=== PATIENT | female | born 1975 | race American Indian/Alaskan Native ===

== ENCOUNTER 2017-08-19 08:09 | Inpatient (IN) | payer MEDICAID, OTHER ==
[~2017-08-19 08:09] MED LIST: ADRENALIN ONE; ATROPINE 0.1% (CARDIAC) ONE; CALCIUM CHLORIDE IV ONE; CORDARONE IV ONE; SODIUM BICARBONATE IV ONE
[2017-08-19] MEDS ORDERED: NACL 0.9% 1000 ML 1,000 ML IV ONE (08:20)
[2017-08-19] MEDS ORDERED: AMINOPHYLLINE IV ONE (08:25)
[2017-08-19] MEDS ORDERED: D5W IV ONE (08:25)
[2017-08-19] MEDS ORDERED: LEVOPHED DRIP 4 MG/NS 250 ML 4 MG/250 ML BAG IV ONE (08:30)
[2017-08-19] MEDS: LEVOPHED DRIP 4 MG/NS 250 ML 4 MG/250 ML BAG IV SCH ×5 (08:35→18:09)
[2017-08-19] MEDS ORDERED: ASPIRIN PO ONE (08:50)
[2017-08-19] MEDS ORDERED: NACL 0.9% 1000 ML 1,000 ML ONE (08:53)
[2017-08-19] MEDS: ADRENALIN 16 MG in NACL 0.9% 250ML 234 ML IV SCH (09:03)
[2017-08-19 09:08] LABS: Basophils # (Auto) 0.1 K/mm3 (0.0-0.1); Basophils % (Auto) 0.8 % (0.0-1.8); Eosinophils % (Auto) 0.4 % (0.0-4.3); Hematocrit 20.7 % (30.3-42.9); Lymphocytes # (Auto) 3.1 K/mm3 (1.2-5.4); Lymphocytes % (Auto) 43.3 % (13.4-35.0); Mean Corpuscular HGB Conc 29 % (30-34); Mean Corpuscular Volume 90 fl (79-97); Monocytes # (Auto) 0.4 K/mm3 (0.0-0.8); Platelet Count 154 K/mm3 (140-440); Red Cell Distribution Width 17.1 % (13.2-15.2)
[2017-08-19 09:12] LABS: Mean Corpuscular Hemoglobin 26 pg (28-32)
[2017-08-19] MEDS ORDERED: NACL 0.9% 500 ML 500 ML IV ONE (09:14)
[2017-08-19 09:18] LABS: Calcium 6.6 mg/dL (8.4-10.2); Hemolysis Index 20
[2017-08-19] MEDS: CORDARONE 900 MG in D5W 482 ML IV SCH (09:18)
[2017-08-19 09:32] LABS: BUN/Creatinine Ratio 7; Blood Urea Nitrogen 125 mg/dL (7-17)
--- NOTE | 2017-08-19 09:34 | Emergency Department Report ---
HPI - General Chief Complaint: Cardiac Arrest/CPR Time Seen by Provider: 08/19/17 08:49 - HPI HPI: This is a 42 year-old female presents to the emergency department by EMS from home in cardiac arrest. The patient supposedly was heard falling in the bathroom by his unknown how long she was down in there, unresponsive. EMS was called at 7:30 AM and was thereby 7:40 AM. They found her with agonal breathing. They attempted to intubate the patient but ended up putting it in her esophagus. She was found to be in V. fib and was defibrillated and went into PEA and asystole. She received a total of 3 rounds of epinephrine, along with chest compressions, and was brought to [facility] ER. She arrived was still pulseless, unresponsive and in asystole. We took out the esophageal intubation and intubated her endotracheally and continued with ACLS protocol. The patient has a history of CHF and end-stage renal disease. Allegedly she just got a new dialysis fistula about 2 weeks ago. I later spoke to her who says that she does not have a esl instructor and he is unsure who her heel cover splitter is as they just moved to this area. ED Past Medical Hx - Past Medical History Previous Medical History?: Yes Hx Hypertension: No Hx Congestive Heart Failure: Yes Hx Diabetes: No Hx Deep Vein Thrombosis: No Hx Renal Disease: Yes (ESRD) Hx Sickle Cell Disease: No Hx Seizures: No Hx Asthma: No Hx HIV: No - Social History Smoking Status: Unknown if ever smoked - Medications Home Medications: Home Medications Medication Instructions Recorded Confirmed Last Taken Type Calcium Acetate [Phoslo] 3 tab PO QDAY 08/19/17 08/19/17 Unknown History Carvedilol [Coreg] 12.5 mg PO BID 08/19/17 08/19/17 Unknown History Furosemide [Lasix TAB] 40 mg PO QDAY 08/19/17 08/19/17 Unknown History Losartan [Cozaar] 50 mg PO QDAY 08/19/17 08/19/17 Unknown History ED Review of Systems ROS: Stated complaint: CARDIAC ARREST Other details as noted in HPI Comment: Unobtainable due to pts medical conditions Physical Exam - Physical Exam Vital Signs: Vital Signs 08/19/17 08:27 Pulse Rate 46 L Respiratory 16 Rate Blood Pressure 83/35 Physical Exam: GENERAL: Patient is ill-appearing and unresponsive. HENT: Normocephalic. Atraumatic. Patient has moist mucous membranes. There is some blood seen in the oropharynx when intubating. EYES: Pupils are fixed and dilated. NECK: Supple. Trachea appears midline. CHEST/LUNGS: There are no spontaneous respirations. HEART/CARDIOVASCULAR: There are no spontaneous heart sounds. ABDOMEN: Abdomen is soft. Morbidly obese habitus. SKIN: Skin is cool but dry. NEURO: Unresponsive. Does not withdraw to painful stimuli. Does not follow any commands. MUSCULOSKELETAL: There is no obvious deformity. There is no evidence of acute injury. No palpable femoral or radial pulses. ED Course Vital Signs 08/19/17 08:27 Pulse Rate 46 L Respiratory 16 Rate Blood Pressure 83/35 - ABG Interpretation Ph: 6.945 PCO2: 37 PO2: 241 Bicarbonate: 8.0 Interpretation: metabolic acidosis - Central Line Placement Right Femoral Consent Obtained: emergent situation Time Out Performed: Yes Patient Placed on Monitor/Pulse Ox: Yes MD Prep: mask, gown, gloves Central Line Prep: Chlorhexidine scrub Ultrasound Used for Placement: Yes Central Line Lumen Inserted: triple Bloods Obtained for Lab: Yes Central Line Position: good blood return, all ports aspirated, flus, sutured in place with nyl Dressing Applied: Tegaderm, sterile gauze/tape Patient Tolerated Procedure: well Complications: none - Intubation Time Out Performed: No Laryngoscope: other (Glydescope) Size: 4 ET Tube Size: 7.5 Tube Secured Depth (cm): 23 Tube Secured Location: lips Tube Placement Confirmation: visualized tube passing t, equal breath sounds bilat, confirmation by capnometr Patient Tolerated Procedure: well Intubation Complications: none ED Medical Decision Making - Lab Data Result diagrams: 08/19/17 08:40 08/19/17 08:40 - EKG Data -: EKG Interpreted by Me - EKG Data When compared to previous EKG there are: previous EKG unavailable Interpretation: other (junctional rhythm, rate of 31, left axis deviation, LVH, nonspecific ST-T waves, prolonged QT) - Radiology Data Radiology results: image reviewed interpreted by me: Chest x-ray shows ET tube in appropriate position. No pneumothorax. No obvious pneumonia or pleural effusions. - Medical Decision Making Patient presented to the emergency department in cardiac arrest. EMS had attempted to intubate the patient but it appeared to be in her esophagus. I pulled this out and intubated the patient using the glydescope. The patient had a few rounds of asystole and/or PEA but then had 1 round of V. fib where she received a defibrillation. Shortly after this the patient had return of spontaneous circulation. She started becoming bradycardic and hypotensive so pressors were started and I placed a right femoral central line. The patient did eventually lose her pulse again and ACLS was restarted but we're able to get return of spontaneous circulation a second time. Patient's labs came back showing hemoglobin of 6. There was some blood seen in the oropharynx but otherwise no obvious bleeding source was seen but could just be worsening of her anemia of chronic kidney disease. She was on a norepinephrine drip, epinephrine drip and received 2 units of packed red blood cells. EKG showed a junctional rhythm most likely consistent with hyperkalemia. She was given some calcium to protect the myocardium and was given the hyperkalemia cocktail. Labs showed a CO2 of 7, elevated BNP and troponin levels. Cardiology was counseled that secondary to her abnormal EKG and cardiac arrest with return of spontaneous circulation. Nephrology was consulted regarding her end-stage renal disease with hyperkalemia. Patient was admitted to the hospitalist service. It appears that the patient will get a Vas-Cath placed and will get dialysis. All the patient's functional status has not yet been determined or improved, the vitals appear to be improving slightly at this time and we have started to turn down some of the pressors. Patient will be admitted to the ICU. Family has been updated along the way. - Differential Diagnosis dysrhythmia, CHF, CO Critical Care Time: Yes Critical care time in (mins) excluding proc time.: 45 Critical care attestation.: If time is entered above; I have spent that time in minutes in the direct care of this critically ill patient, excluding procedure time. Critical care time is been spent on this patient and initial evaluation, multiple re-evaluations, ordering and interpretation of labs and imaging, titration of pressors, discussion with the hospitalist/cardiology/nephrology services, discussion with the family. This does not include time spent doing the intubation or central line procedures. Critical Care Time: 45 minutes ED Disposition Clinical Impression: Cardiac arrest, ESRD needing dialysis, Hyperkalemia, Lactic acidosis Respiratory failure Qualifiers: Chronicity: acute Respiratory failure complication: unspecified whether with hypoxia or hypercapnia Qualified Code(s): J96.00 - Acute respiratory failure, unspecified whether with hypoxia or hypercapnia Hypotension Qualifiers: Hypotension type: unspecified hypotension type Qualified Code(s): I95.9 - Hypotension, unspecified Disposition: -09 OP ADMIT IP TO THIS HOSP Is pt being admited?: Yes Condition: Critical Time of Disposition: 11:58
[2017-08-19] MEDS ORDERED: PROVENTIL IH ONE (09:39)
--- NOTE | 2017-08-19 10:10 | XRay Report ---
AP CHEST: HISTORY: Shortness of breath, endotracheal tube placement No comparison. The endotracheal tube terminates 1 cm superior to the graham. A nasogastric tube is followed to the fundus of the stomach. There is mild rotation to the left. Moderate cardiomegaly and bilateral pulmonary edema are identified. No large pleural effusion or pneumothorax. IMPRESSION: Lines and tubes as described. Cardiomegaly and bilateral pulmonary edema.
[2017-08-19] MEDS ORDERED: KIONEX PO ONE (10:46)
[2017-08-19 10:49] LABS: HDL Cholesterol 18 mg/dL (40-59); LDL Cholesterol,Direct 18 mg/dL (50-130)
[2017-08-19] MEDS ORDERED: ARTIFICIAL TEARS OPHTH OINT OU PRN (10:59)
[2017-08-19] MEDS ORDERED: VASELINE LIP THERAPY TP PRN (10:59)
[2017-08-19] MEDS ORDERED: D50W (25GM) Syringe IV ONE (11:14)
[2017-08-19] MEDS ORDERED: CALCIUM GLUCONATE 1,000 MG in NACL 0.9% 100 ML IV ONE (12:13)
[2017-08-19] MEDS ORDERED: SODIUM BICARBONATE 150 MEQ in D5W 1,000 ML IV ONE (12:29)
--- NOTE | 2017-08-19 14:41 | Consultation ---
History of Present Illness - Reason for Consult Consult date: 08/19/17 end stage renal disease, hyperkalemia, metabolic acidosis Requesting physician: BUZZ ROBIN - History of Present Illness This is a 42 year-old female presents to the emergency department by EMS from home in cardiac arrest. The patient supposedly was heard falling in the bathroom by his unknown how long she was down in there, unresponsive. EMS was called at 7:30 AM and was thereby 7:40 AM. They found her with agonal breathing. They attempted to intubate the patient but ended up putting it in her esophagus. She was found to be in V. fib and was defibrillated and went into PEA and asystole. She received a total of 3 rounds of epinephrine, along with chest compressions, and was brought [facility]. She arrived was still pulseless, unresponsive and in asystole. We took out the esophageal intubation and intubated her endotracheally and continued with ACLS protocol. The patient has a history of CHF and end-stage renal disease. Allegedly she just got a new dialysis fistula about 2 weeks ago. I later spoke to her who says that she does not have a fur ironer and he is unsure who her field service technician poultry is as they just moved to this area. - Past Medical History Previous Medical History?: Yes Hx Hypertension: No Hx Congestive Heart Failure: Yes Hx Diabetes: No Hx Deep Vein Thrombosis: No Hx Renal Disease: Yes (ESRD) Hx Sickle Cell Disease: No Hx Seizures: No Hx Asthma: No Hx HIV: No - Social History Smoking Status: Unknown if ever smoked ROS: Stated complaint: CARDIAC ARREST Other details as noted in HPI Comment: Unobtainable due to pts medical conditions Medications and Allergies Allergies Allergy/AdvReac Type Severity Reaction Status Date / Time No Known Allergies Allergy Unverified 03/29/13 23:26 Active Meds: Active Medications Hydrophilic Ointment (Vaseline Lip Therapy) 1 applic TP Q2HR PRN PRN Reason: Dry Lips Amiodarone HCl 900 mg/ (Dextrose) 500 mls @ 0 mls/hr IV DIRECT OZIEL Last Admin: 08/19/17 09:18 Dose: 33.33 mls/hr Epinephrine 16 mg/ Sodium (Chloride) 250 mls @ 1.87 mls/hr IV TITR OZIEL; 2 MCG/ MIN PRN Reason: Protocol Last Admin: 08/19/17 09:03 Dose: 10 mcg/min, 9.37 mls/hr Norepinephrine (Levophed Drip 4 Mg/Ns 250 Ml) 4 mg in 250 mls @ 7.5 mls/hr IV TITR OZIEL; 2 MCG/MIN PRN Reason: Protocol Last Titration: 08/19/17 14:24 Dose: 24 mcg/min, 90 mls/hr Sodium Bicarbonate 150 meq/ (Dextrose) 1,150 mls @ 75 mls/hr IV ONCE.ED ONE Stop: 08/20/17 03:48 Multi-Ingred Cream/Lotion/Oil/Oint (Artificial Tears Ophth Oint) 1 applic OU Q4HR PRN PRN Reason: Dry Eye(s) Exam - Vital Signs Vital signs: Vital Signs Resp 98 H 08/19/17 08:10 - General Appearance General appearance: chronically ill, sedated on ventilator, intubated EENT: PERRL, exudate Respiratory: Rales, Ronchi, Decreased Breath Sounds Heart: bradycardia, S1S2, faint heart tones Gastrointestinal: Present: normal, hypoactive bowel sounds Integumentary: cool/clammy, chronic venous stasis Neurologic: no focal deficit Musculoskeletal: Present: cyanosis, decreased ROM Psychiatric: other (sedate on the vent) Results - Lab Results 08/19/17 08:40 08/19/17 08:40 Most recent lab results Calcium 6.6 mg/dL (8.4-10.2) L 08/19/17 08:40 Assessment and Plan Impression: * ESRD * S/P cardiac arrest * Uremia * Hyperkalemia * Acute Resp Failure * Metabolic Acidosis * anemia in chronic disease Plan: * Vasopressors to keep MAP >65 * strict i/os * Sodium bicarbonate gtt * treat k medically * give 2 units prbcs today * epogen with HD * vasc cath placement--D/W vascular * initiate hemodialysis as hemodynamics allow * likely will need daily HD for solute and volume control * daily lytes * plan on NO UF intially with hd to keep hemodynamics stable * D/W family at bedside--questions answered, willing to proceed as planned
[2017-08-19] MEDS ORDERED: ALBURX 25% (ALBUMIN) IV PRN (14:42)
[2017-08-19] MEDS ORDERED: PROCRIT IV PRN (14:42)
[2017-08-19] MEDS ORDERED: NACL 0.9% 100 ML IV PRN (14:42)
[2017-08-19] MEDS ORDERED: NACL 0.9% 500 ML 500 ML IV SCH (14:45)
--- NOTE | 2017-08-19 14:50 | Consultation ---
History of Present Illness Consult date: 08/19/17 Consult reason: cardiac arrest History of present illness: The patient is a 42-year-old woman who suffered a cardiopulmonary arrest at home. When the brand ambassador promotional model got there, they reported ventricular fibrillation arrest, and began ACLS protocol. On arrival to the emergency room, there was recurrent ventricular fibrillation, followed by pulseless electrical activity, followed by eventual blood pressure on high doses of pressor agents. EKG post resuscitation showed a junctional or idioventricular rhythm with no P waves. Laboratory exam was notable for severe anemia, hematocrit less than 20, and severe hyperkalemia. On further evaluation, the patient is noted to have a dilated cardiomyopathy and end-stage renal failure. states that 3 months ago while they lived in [place], she was diagnosed with dilated heart and heart failure. At that time she was also found to have severe renal failure. The patient recently had a dialysis access placed, but not yet been initiated into hemodialysis. He does not know the name of her missile technician. Patient currently remains in the emergency room, unresponsive, and event. The blood pressure is 106 systolic on pressor agents. She has regained a sinus rhythm following emergency treatment of the hyperkalemia. She is receiving blood transfusions for her severe anemia. An echocardiogram done at the bedside shows a dilated heart, with severe left ventricular systolic dysfunction, ejection fraction 20-25%. Past History Past Medical History: heart failure, renal failure Medications and Allergies Allergies Allergy/AdvReac Type Severity Reaction Status Date / Time No Known Allergies Allergy Unverified 03/29/13 23:26 Active Meds: Active Medications Hydrophilic Ointment (Vaseline Lip Therapy) 1 applic TP Q2HR PRN PRN Reason: Dry Lips Amiodarone HCl 900 mg/ (Dextrose) 500 mls @ 0 mls/hr IV DIRECT OZIEL Last Admin: 08/19/17 09:18 Dose: 33.33 mls/hr Epinephrine 16 mg/ Sodium (Chloride) 250 mls @ 1.87 mls/hr IV TITR OZIEL; 2 MCG/ MIN PRN Reason: Protocol Last Admin: 08/19/17 09:03 Dose: 10 mcg/min, 9.37 mls/hr Norepinephrine (Levophed Drip 4 Mg/Ns 250 Ml) 4 mg in 250 mls @ 7.5 mls/hr IV TITR OZIEL; 2 MCG/MIN PRN Reason: Protocol Last Titration: 08/19/17 14:24 Dose: 24 mcg/min, 90 mls/hr Sodium Bicarbonate 150 meq/ (Dextrose) 1,150 mls @ 75 mls/hr IV ONCE.ED ONE Stop: 08/20/17 03:48 Last Admin: 08/19/17 14:30 Dose: 75 mls/hr Multi-Ingred Cream/Lotion/Oil/Oint (Artificial Tears Ophth Oint) 1 applic OU Q4HR PRN PRN Reason: Dry Eye(s) Review of Systems ROS unobtainable: due to endotracheal tube, due to mental status Physical Examination Vital Signs Resp 98 H 08/19/17 08:10 General appearance: other (patient is on the vent, unresponsive) HEENT: Positive: Other (pupils fixed) Neck: Positive: neck supple Cardiac: Positive: Reg Rate and Rhythm Lungs: Positive: Decreased Breath Sounds Neuro: Positive: Other (unresponsive, and event) Abdomen: Positive: Soft Female genitourinary: deferred Skin: Positive: Clear Extremities: Absent: edema Results 08/19/17 08:40 08/19/17 08:40 Lipids 08/19/17 Range/Units 08:40 Triglycerides 183 H (2-149) mg/dL Cholesterol 72 (50-199) mg/dL HDL Cholesterol 18 L (40-59) mg/dL Cholesterol/HDL Ratio 4.00 % CBC 08/19/17 Range/Units 08:40 WBC 7.3 (4.5-11.0) K/mm3 RBC 2.30 L (3.65-5.03) M/mm3 Hgb 6.0 L (10.1-14.3) gm/dl Hct 20.7 L (30.3-42.9) % Plt Count 154 (140-440) K/mm3 Lymph # 3.1 (1.2-5.4) K/mm3 [place] # 0.4 (0.0-0.8) K/mm3 Eos # 0.0 (0.0-0.4) K/mm3 Baso # 0.1 (0.0-0.1) K/mm3 Comprehensive Metabolic Panel 08/19/17 Range/Units 08:40 Sodium 142 (137-145) mmol/L Potassium 6.3 H* (3.6-5.0) mmol/L Chloride 97.7 L (98-107) mmol/L Carbon Dioxide 7 L* (22-30) mmol/L BUN 125 H (7-17) mg/dL Creatinine 18.3 H (0.7-1.2) mg/dL Glucose 198 H (65-100) mg/dL Calcium 6.6 L (8.4-10.2) mg/dL EKG interpretations - Telemetry EKG Rhythm: Sinus Rhythm Assessment and Plan - Patient Problems (1) Cardiac arrest Current Visit: Yes Status: Acute Plan to address problem: Patient with dilated cardiomyopathy and heart failure diagnosed 3 months ago, end-stage renal failure not yet on hemodialysis, who presents with an out of hospital cardiopulmonary arrest. Echocardiogram shows and ejection fraction 20- 25%. Recommendations: Correction of acid base balance, hyperkalemia and initiation of hemodialysis. When hemodynamically stable, routine heart failure therapy with afterload reducing agents, beta blockers and oral antiplatelet therapy. Prognosis is guarded following an out of hospital cardiopulmonary arrest.
[2017-08-19 16:05] LABS: % Iron Saturation 78.31 %; Magnesium 2.2 mg/dL (1.7-2.3)
[2017-08-19 16:12] LABS: Hepatitis A Antibody IgM Non-Reactive (NonReactive); Hepatitis B Core IgM Non-Reactive (NonReactive); Hepatitis B Surface Antigen Non-Reactive (Negative)
[2017-08-19 16:34] LABS: Hepatitis C Virus Antibody Non-Reactive (NonReactive)
[2017-08-19] MEDS ORDERED: HEPARIN 10,000 UNITS/10 ML ONE (17:32)
[2017-08-19] MEDS ORDERED: HEPARIN ONE (17:32)
[2017-08-19] MEDS ORDERED: NACL 0.9 (PRIMING MACHINE ONLY DIALYSIS) MC ONE (17:33)
[2017-08-19] MEDS ORDERED: PROCRIT ONE (17:35)
--- NOTE | 2017-08-19 18:11 | Operative Report ---
Operative Report Operative Report: EXAM: 1. Ultrasound-guided puncture of the left common femoral vein 2. Placement of a left common femoral triple lumen nontunneled noncuffed hemodialysis catheter. DATE: 08/19/17 INDICATION: End-stage renal disease requiring hemodialysis access. MEDICATIONS: Local anesthetic (1% lidocaine). DEVICES: Triple lumen nontunneled noncuffed hemodialysis catheter BOG WORKER: CHERELLE KOLB MD CONTRAST: None PROCEDURE: The risks, benefits, and alternatives were discussed and informed consent was obtained. The patient's left common femoral vein was assessed with ultrasound at bedside and determined to be patent prior to procedure. The patient was prepped and draped in a sterile fashion. The puncture site was anesthetized. Under sonographic guidance, the left common femoral vein was punctured with a 18-gauge micropuncture needle and a 0.035 inch wire was advanced through the needle. Over the 0.035 inch wire, dilatation was performed. The catheter was advanced over the wire. 3-0 nylon suture was used to secure the catheter. The peripheral lumens were charged with 1000 units per mL of heparin per mL of space. The central catheter lumen was charged with saline. Biopatch and tegaderm were applied. Sterile dressing applied. FINDINGS: 1. Ultrasound documented patency of the left common femoral vein. The vessel was accessed under direct ultrasound guidance. IMPRESSION: 1. Successful ultrasound guided bedside placement of a left common femoral triple lumen nontunneled noncuffed dual lumen hemodialysis catheter.
--- NOTE | 2017-08-19 23:12 | Event Note ---
Date: 08/19/17 LUCINA PETIT was called at 21:50 and I went to the room and patient was in PEA, patient was coded according to ACLS protocol for about 10 minutes and patient was successfully resuscitated, blood pressure was 123/60. Patient was coded 2 times before admitted to the ICU. I have tried to contact her to discuss about the CODE STATUS and to tell about the prognosis but he couldn't answer. Cardiac enzymes, BMP, EKG ordered.
[2017-08-19 23:17] LABS: Calcium 5.7 mg/dL (8.4-10.2)
--- NOTE | 2017-08-19 23:47 | Event Note ---
Date: 08/19/17 See dictated H/p in reports \S/p cardiac arrest Hypotension Pulmonary edema ESRD Ventricular fibrillation Acute resp failure
[2017-08-20] MEDS ORDERED: NS 0.9% IV ONE (00:24)
[2017-08-20] MEDS: Vasostrict 20 UNIT in NACL 0.9% 100 ML IV SCH ×4 (00:29→20:39)
[2017-08-20] MEDS ORDERED: CALCIUM CHLORIDE 2,000 MG in NACL 0.9% 100 ML IV ONE ×2 (01:30→02:30)
[2017-08-20] MEDS ORDERED: SIMPLE SYRUP FEEDTUBE PRN ×4 (02:11→06:04)
[2017-08-20] MEDS ORDERED: PANCREAZE DR 10,500 UNIT FEEDTUBE PRN ×2 (02:11→06:04)
[2017-08-20] MEDS ORDERED: SODIUM BICARBONATE FEEDTUBE PRN ×2 (02:11→06:04)
--- NOTE | 2017-08-20 03:07 | History and Physical Report ---
CHIEF COMPLAINT: Cardiac arrest, status post CPR. HISTORY OF PRESENT ILLNESS: A 42-year-old -[place] female brought in to the Emergency Room after a witnessed cardiac arrest. The patient apparently fell in the bathroom, but unknown how long she was down there and unresponsive. EMS was called around 7:30 a.m. The patient was rhythm. ACLS protocol was initiated. The patient was found to be in V-fib and was defibrillated, went into PEA and asystole. After 3 rounds of epinephrine along with chest compressions, she was brought to the Emergency Room. She was pulseless and unresponsive, and in asystole. The patient was intubated in the ER. ACLS was continued. The patient was revived with swung in her blood pressure. The patient does not have any fire extinguisher technician or welding machine operator helper gas. No fever, no chills prior to this episode. No history prior to this episode. PAST MEDICAL HISTORY: Significant for congestive heart failure, end-stage renal disease. SOCIAL HISTORY: We do not know whether she smoked. CURRENT MEDICATIONS: Coreg, Lasix, losartan, and calcium acetate. FAMILY HISTORY: Hypertension. PAST SURGICAL HISTORY: Unavailable. REVIEW OF SYSTEMS: The patient in cardiac arrest and unconscious. Review of systems could not be done. PHYSICAL EXAMINATION: GENERAL: Middle-aged female, intubated, unresponsive. VITAL SIGNS: Blood pressure is 57/24 and 82/42, pulse is 62, respirations are 20, sats are 93 to 99%. HEENT: Unremarkable. ET tube in place. NECK: Supple, no lymphadenopathy, no thyromegaly. LUNGS: Bilateral rhonchi present. CARDIOVASCULAR: S1, S2 heard. No gallop, no murmur, no rub. Apical impulse in the left fifth intercostal space and midclavicular line. ABDOMEN: Soft and benign. No hepatosplenomegaly. No guarding, no rigidity. Hernial orifices are normal. EXTREMITIES: Good pedal pulses. No pedal edema. CENTRAL NERVOUS SYSTEM: Unresponsive. SKIN: Normal. DIAGNOSTIC DATA: EKG shows atrial fibrillation with significant pauses of about 2 seconds. Heart rate of 31 per minute. Chest x-ray shows no infiltrates. Bilateral pulmonary edema present. LABORATORY DATA: Significant for hemoglobin of 6.0, hematocrit of 20.7. Potassium was 6.3, bicarbonate of 7. Lactic acid of 14.3. Sodium of 142, BUN and creatinine are 125 and 18.3. Chest x-ray, pulmonary congestion. ASSESSMENT AND PLAN: 1. Status post cardiac arrest. The patient to continue supportive care. Continue Levophed. If Levophed not available, can switch to Gelacio-Synephrine. Also, if slightly stable, hemodialysis to be initiated. 2. Acute respiratory failure secondary to cardiac arrest, continue ventilatory support. 3. Hypotension, continue on Levophed or Gelacio-Synephrine. 4. End-stage renal disease, on dialysis, slightly stable. 5. Hypertension. The patient is now hypotensive, hold the antihypertensives. 6. Acute anemia, the patient to be transfused 2 to 3 units. 7. Elevated lactic acid, probably secondary to cardiac catheterization. There is no sepsis. We will initiate on Zosyn empirically prophylactic connor. 8. Deep venous thrombosis prophylaxis, Lovenox 30 mg subcutaneous daily, check post-transfusion hemoglobin. CRITICAL CARE STATEMENT: Because there is high probability . JOB# [id number] [facility]
[2017-08-20] MEDS: NOVOLOG SUB-Q SCH ×4 (03:39→21:23)
[2017-08-20] MEDS: ADRENALIN 16 MG in NACL 0.9% 250ML 234 ML IV SCH (04:21)
[2017-08-20] MEDS: CORDARONE 900 MG in D5W 482 ML IV SCH (05:56)
[2017-08-20] MEDS: LEVOPHED 8 MG in NACL 0.9% 250ML 242 ML IV SCH ×3 (07:25→18:39)
[2017-08-20] MEDS ORDERED: PEPCID IV SCH (10:00)
--- NOTE | 2017-08-20 10:47 | Progress Note ---
Assessment and Plan Assessment and plan: Status post cardiopulmonary arrest. Cardiology following. Continue vasopressor support to keep MAP >65 Acute hypoxemic respiratory failure. Cont vent per Pulm. Pulm consult pending ESRD. Continue sodium bicarbonate drip. Epogen with hemodialysis. Vascular catheter placement per vascular surgery. Initiate hemodialysis when hemodynamically stable. Nephrology following. Hyperkalemia. Treat k medically Anemia. Etiology prob secondary to ESRD. Check occult stools. Transfuse for Hgb < 7. The high probability of a clinically significant, sudden or life threatening deterioration of the [respiratory, renal and hemodynamic] system(s) required my full and direct attention, intervention and personal management. The aggregate critical care time was [32] minutes. This time is in addition to time spent performing reported procedures but includes the following: [x] Data Review and interpretation [x] Patient assessment and monitoring of vital signs [x] Documentation [x] Medication orders and management History Interval history: The patient is a 42-year-old woman who suffered a cardiopulmonary arrest at home. When the paint mixer hand got there, they reported ventricular fibrillation arrest, and began ACLS protocol. On arrival to the emergency room, there was recurrent ventricular fibrillation, followed by pulseless electrical activity, followed by eventual blood pressure on high doses of pressor agents. EKG post resuscitation showed a junctional or idioventricular rhythm with no P waves. Laboratory exam was notable for severe anemia, hematocrit less than 20, and severe hyperkalemia. The patient is noted to have a dilated cardiomyopathy and end-stage renal failure. An echocardiogram done at the bedside showed a dilated heart, with severe left ventricular systolic dysfunction, ejection fraction 20- 25%. Hospitalist Physical - Constitutional Vitals: Temp Pulse Resp BP Pulse Ox 93 F L 78 30 H 167/75 100 08/20/17 08:00 08/20/17 08:39 08/20/17 06:43 08/20/17 08:39 08/20/17 08:39 General appearance: Present: severe distress, other (patient is on the vent, unresponsive, on 3 pressors) - EENT Eyes: Present: PERRL, EOM intact ENT: hearing intact, clear oral mucosa, dentition normal - Neck Neck: Present: supple, normal ROM - Respiratory Respiratory effort: normal Respiratory: bilateral: diminished, rales, rhonchi - Cardiovascular Rhythm: regular Heart Sounds: Present: S1 & S2. Absent: gallop, rub - Extremities Extremities: no ischemia, Full ROM Extremity abnormal: edema (3+) - Abdominal General gastrointestinal: soft, non-tender, non-distended, normal bowel sounds - Integumentary Integumentary: Present: clear, warm, dry - Neurologic Neurologic: CNII-XII intact, moves all extremities Results - Labs CBC & Chem 7: 08/19/17 08:40 08/19/17 22:24 Labs: Laboratory Last Values WBC 7.3 K/mm3 (4.5-11.0) 08/19/17 08:40 RBC 2.30 M/mm3 (3.65-5.03) L 08/19/17 08:40 Hgb 6.0 gm/dl (10.1-14.3) L 08/19/17 08:40 Hct 20.7 % (30.3-42.9) L 08/19/17 08:40 MCV 90 fl (79-97) 08/19/17 08:40 MCH 26 pg (28-32) L 08/19/17 08:40 MCHC 29 % (30-34) L 08/19/17 08:40 RDW 17.1 % (13.2-15.2) H 08/19/17 08:40 Plt Count 154 K/mm3 (140-440) 08/19/17 08:40 Lymph % (Auto) 43.3 % (13.4-35.0) H 08/19/17 08:40 [place] % (Auto) 5.0 % (0.0-7.3) 08/19/17 08:40 Eos % (Auto) 0.4 % (0.0-4.3) 08/19/17 08:40 Baso % (Auto) 0.8 % (0.0-1.8) 08/19/17 08:40 Lymph # 3.1 K/mm3 (1.2-5.4) 08/19/17 08:40 [place] # 0.4 K/mm3 (0.0-0.8) 08/19/17 08:40 Eos # 0.0 K/mm3 (0.0-0.4) 08/19/17 08:40 Baso # 0.1 K/mm3 (0.0-0.1) 08/19/17 08:40 Seg Neutrophils % 50.5 % (40.0-70.0) 08/19/17 08:40 Seg Neutrophils # 3.7 K/mm3 (1.8-7.7) 08/19/17 08:40 POC ABG pH 7.329 (7.35-7.45) L 08/20/17 00:20 POC ABG pCO2 25.8 (35-45) L 08/20/17 00:20 POC ABG pO2 95 (80-105) 08/20/17 00:20 POC ABG HCO3 13.6 08/20/17 00:20 POC ABG Total CO2 14 08/20/17 00:20 POC ABG O2 Sat 97 08/20/17 00:20 POC ABG Base Excess -12 08/20/17 00:20 FiO2 100 % 08/20/17 00:20 Sodium 138 mmol/L (137-145) 08/19/17 22:24 Potassium 4.3 mmol/L (3.6-5.0) D 08/19/17 22:24 Chloride 97.5 mmol/L (98-107) L 08/19/17 22:24 Carbon Dioxide 12 mmol/L (22-30) L 08/19/17 22:24 Anion Gap 33 mmol/L 08/19/17 22:24 BUN 90 mg/dL (7-17) H 08/19/17 22:24 Creatinine 13.5 mg/dL (0.7-1.2) H 08/19/17 22:24 Estimated GFR 4 ml/min 08/19/17 22:24 BUN/Creatinine Ratio 7 % 08/19/17 22:24 Glucose 110 mg/dL (65-100) H 08/19/17 22:24 POC Glucose 115 (70-105) H 08/20/17 05:43 Lactic Acid 14.30 mmol/L (0.7-2.0) H* 08/19/17 08:40 Calcium 5.7 mg/dL (8.4-10.2) L* 08/19/17 22:24 Phosphorus 14.00 mg/dL (2.5-4.5) H 08/19/17 15:30 Magnesium 2.20 mg/dL (1.7-2.3) 08/19/17 15:30 Iron 148 ug/dL (37-170) 08/19/17 15:30 TIBC 189 mcg/dL (250-450) L 08/19/17 15:30 % Saturation 78.31 % 08/19/17 15:30 Transferrin 143 mg/dl (192-382) L 08/19/17 15:30 Ferritin 1920.0 ng/mL (13.0-400.0) H 08/19/17 15:30 Troponin T 0.386 ng/mL (0.00-0.029) H* D 08/19/17 14:42 NT-Pro-B Natriuret Pep > 54617 pg/mL (0-450) H 08/19/17 08:40 Triglycerides 183 mg/dL (2-149) H 08/19/17 08:40 Cholesterol 72 mg/dL (50-199) 08/19/17 08:40 LDL Cholesterol Direct 18 mg/dL (50-130) L 08/19/17 08:40 HDL Cholesterol 18 mg/dL (40-59) L 08/19/17 08:40 Cholesterol/HDL Ratio 4.00 % 08/19/17 08:40 Hepatitis A IgM Ab Non-reactive (NonReactive) 08/19/17 15:30 Hep Bs Antigen Non-reactive (Negative) 08/19/17 15:30 Hep B Core IgM Ab Non-reactive (NonReactive) 08/19/17 15:30 Hepatitis C Antibody Non-reactive (NonReactive) 08/19/17 15:30 Blood Type O POSITIVE 08/19/17 09:20 Antibody Screen Negative 08/19/17 09:20 Crossmatch See Detail 08/19/17 09:20
[2017-08-20 11:28] LABS: Hemoglobin 6.4 gm/dl (10.1-14.3); Mean Corpuscular HGB Conc 33 % (30-34); Mean Corpuscular Hemoglobin 26 pg (28-32); Mean Corpuscular Volume 80 fl (79-97); Red Blood Count 2.45 M/mm3 (3.65-5.03); Red Cell Distribution Width 15.9 % (13.2-15.2)
[2017-08-20 11:30] LABS: Platelet Count 77 K/mm3 (140-440)
[2017-08-20 11:32] LABS: Hematocrit 19.6 % (30.3-42.9)
[2017-08-20] MEDS ORDERED: PNEUMOVAX 23 IM ONE (12:00)
[2017-08-20] MEDS ORDERED: Fluarix Quad 2017-2018(36 MOS+ IM ONE (12:00)
[2017-08-20 12:27] LABS: Band Neutrophils # (Manual) 0.3 K/mm3; Basophils % (Manual) 0 % (0.0-1.8); Eosinophils % (Manual) 0 % (0.0-4.3); Monocytes % (Manual) 0 % (0.0-7.3); Total Cells Counted 100
[2017-08-20 12:28] LABS: Anisocytosis 1+; Platelet Estimate Consistent w Auto; Poikilocytosis 1+; Tear Drop Cells Few
--- NOTE | 2017-08-20 12:52 | Consultation ---
History of Present Illness Consult date: 08/20/17 Requesting physician: YOSVANY PLATT Reason for consult: other (Severe Sepsis; Acute Hypoxemic Respiratory Failure) History of present illness: PULMONARY/CCM CONSULT NOTE (Full dictation # [id number]) Please see dictated notes for full details Past History Past Medical History: heart failure, renal failure Medications and Allergies Allergies Allergy/AdvReac Type Severity Reaction Status Date / Time No Known Allergies Allergy Unverified 03/29/13 23:26 Home Medications Medication Instructions Recorded Confirmed Last Taken Type Calcium Acetate [Phoslo] 3 tab PO QDAY 08/19/17 08/19/17 Unknown History Carvedilol [Coreg] 12.5 mg PO BID 08/19/17 08/19/17 Unknown History Furosemide [Lasix TAB] 40 mg PO QDAY 08/19/17 08/19/17 Unknown History Losartan [Cozaar] 50 mg PO QDAY 08/19/17 08/19/17 Unknown History Active Meds: Active Medications Albumin Human (Alburx 25% (Albumin)) 25 gm IV LINCOLN PRN PRN Reason: Hypotension Last Admin: 08/19/17 21:04 Dose: 25 gm Lipase/Protease/Amylase (Pancreaze Dr 10,500 Unit) 1 each FEEDTUBE PRN PRN PRN Reason: For Clogged Feeding Tube Epoetin Nicholas (Procrit) 10,000 unit IV LINCOLN PRN PRN Reason: hemodialysis Famotidine (Pepcid) 20 mg IV DAILY OZIEL Last Admin: 08/20/17 10:30 Dose: 20 mg Hydrophilic Ointment (Vaseline Lip Therapy) 1 applic TP Q2HR PRN PRN Reason: Dry Lips Amiodarone HCl 900 mg/ (Dextrose) 500 mls @ 0 mls/hr IV DIRECT OZIEL Last Admin: 08/20/17 05:56 Dose: 0.5 mls/hr Epinephrine 16 mg/ Sodium (Chloride) 250 mls @ 1.87 mls/hr IV TITR OZIEL; 2 MCG/ MIN PRN Reason: Protocol Last Admin: 08/20/17 04:21 Dose: 10 mcg/min, 9.37 mls/hr Sodium Chloride (Nacl 0.9%) 100 mls @ 999 mls/hr IV LINCOLN PRN PRN Reason: Hypotension Vasopressin 20 unit/ Sodium (Chloride) 101 mls @ 9.09 mls/hr IV TITR OZIEL; 0.03 UNITS/MIN PRN Reason: Protocol Last Admin: 08/20/17 10:19 Dose: 0.03 units/min, 9.09 mls/hr Norepinephrine 8 mg/ Sodium (Chloride) 250 mls @ 3.75 mls/hr IV TITR OZIEL; 2 MCG /MIN PRN Reason: Protocol Last Admin: 08/20/17 10:16 Dose: 30 mcg/min, 56.25 mls/hr Insulin Aspart (Novolog) 0 units SUB-Q Q6H OZIEL PRN Reason: Protocol Last Admin: 08/20/17 03:39 Dose: Not Given Multi-Ingred Cream/Lotion/Oil/Oint (Artificial Tears Ophth Oint) 1 applic OU Q4HR PRN PRN Reason: Dry Eye(s) Simple Syrup (Simple Syrup) 15 ml FEEDTUBE PRN PRN PRN Reason: Hypoglycemia Simple Syrup (Simple Syrup) 30 ml FEEDTUBE PRN PRN PRN Reason: Hypoglycemia Sodium Bicarbonate (Sodium Bicarbonate) 325 mg FEEDTUBE PRN PRN PRN Reason: For Clogged Feeding Tube Physical Examination Vital signs: Vital Signs Resp 98 H 08/19/17 08:10 Results - Laboratory Findings CBC and BMP: 08/20/17 10:45 08/20/17 10:45 ABG POC ABG pH 7.329 (7.35-7.45) L 08/20/17 00:20 POC ABG pCO2 25.8 (35-45) L 08/20/17 00:20 POC ABG pO2 95 (80-105) 08/20/17 00:20 POC ABG HCO3 13.6 08/20/17 00:20 POC ABG Total CO2 14 08/20/17 00:20 POC ABG O2 Sat 97 08/20/17 00:20 Abnormal lab findings: Abnormal Labs 08/19/17 08/19/17 08/19/17 08:40 08:40 08:40 RBC 2.30 L Hgb 6.0 L Hct 20.7 L MCH 26 L MCHC 29 L RDW 17.1 H Plt Count Lymph % (Auto) 43.3 H Seg Neuts % (Manual) Lymphocytes % (Manual) Nucleated RBC % Lymphocytes # (Manual) POC ABG pH POC ABG pCO2 POC ABG pO2 Potassium 6.3 H* Chloride 97.7 L Carbon Dioxide 7 L* BUN 125 H Creatinine 18.3 H Glucose 198 H POC Glucose Lactic Acid 14.30 H* Calcium 6.6 L Phosphorus TIBC Transferrin Ferritin Troponin T 0.117 H* NT-Pro-B Natriuret Pep > 28247 H Triglycerides 183 H LDL Cholesterol Direct 18 L HDL Cholesterol 18 L Crossmatch 08/19/17 08/19/17 08/19/17 09:20 12:30 12:55 RBC Hgb Hct MCH MCHC RDW Plt Count Lymph % (Auto) Seg Neuts % (Manual) Lymphocytes % (Manual) Nucleated RBC % Lymphocytes # (Manual) POC ABG pH POC ABG pCO2 POC ABG pO2 Potassium Chloride Carbon Dioxide BUN Creatinine Glucose POC Glucose 131 H Lactic Acid Calcium Phosphorus TIBC Transferrin Ferritin Troponin T 0.319 H* D NT-Pro-B Natriuret Pep Triglycerides LDL Cholesterol Direct HDL Cholesterol Crossmatch See Detail 08/19/17 08/19/17 08/19/17 14:42 15:10 15:30 RBC Hgb Hct MCH MCHC RDW Plt Count Lymph % (Auto) Seg Neuts % (Manual) Lymphocytes % (Manual) Nucleated RBC % Lymphocytes # (Manual) POC ABG pH 6.945 L POC ABG pCO2 POC ABG pO2 241 H Potassium Chloride Carbon Dioxide BUN Creatinine Glucose POC Glucose Lactic Acid Calcium Phosphorus 14.00 H TIBC 189 L Transferrin 143 L Ferritin Troponin T 0.386 H* D NT-Pro-B Natriuret Pep Triglycerides LDL Cholesterol Direct HDL Cholesterol Crossmatch 08/19/17 08/19/17 08/19/17 15:30 22:08 22:24 RBC Hgb Hct MCH MCHC RDW Plt Count Lymph % (Auto) Seg Neuts % (Manual) Lymphocytes % (Manual) Nucleated RBC % Lymphocytes # (Manual) POC ABG pH POC ABG pCO2 POC ABG pO2 Potassium Chloride 97.5 L Carbon Dioxide 12 L BUN 90 H Creatinine 13.5 H Glucose 110 H POC Glucose 110 H Lactic Acid Calcium 5.7 L* Phosphorus TIBC Transferrin Ferritin 1920.0 H Troponin T NT-Pro-B Natriuret Pep Triglycerides LDL Cholesterol Direct HDL Cholesterol Crossmatch 08/20/17 08/20/17 08/20/17 00:20 05:43 10:45 RBC 2.45 L Hgb 6.4 L Hct 19.6 L* MCH 26 L MCHC RDW 15.9 H Plt Count 77 L Lymph % (Auto) Seg Neuts % (Manual) 94.0 H Lymphocytes % (Manual) 0 L Nucleated RBC % 4.0 H Lymphocytes # (Manual) 0.0 L POC ABG pH 7.329 L POC ABG pCO2 25.8 L POC ABG pO2 Potassium Chloride Carbon Dioxide BUN Creatinine Glucose POC Glucose 115 H Lactic Acid Calcium Phosphorus TIBC Transferrin Ferritin Troponin T NT-Pro-B Natriuret Pep Triglycerides LDL Cholesterol Direct HDL Cholesterol Crossmatch
[2017-08-20 13:19] LABS: Albumin 2.7 g/dL (3.9-5); Bilirubin,Direct 0.5 mg/dL (0-0.2)
--- NOTE | 2017-08-20 13:36 | Progress Note ---
Assessment and Plan Out of hospital cardiopulmonary arrest intubated on mechanical ventilation on IV amiodarone Hx dilated cardiomyopathy diagnosed 3 months ago in [place] End-stage renal failure initiated on HD Hyperkalemia Severe Anemia Echocardiogram shows and ejection fraction 20-25%. Supportive cardiac management. Subjective Date of service: 08/20/17 Interval history: Patient is intubated, unresponsive on the vent. On multiple pressors for support. Objective Vital Signs Temp Pulse Pulse Resp BP Pulse Ox 08/20/17 12:24 82 97 08/20/17 12:11 82 30 H 71/44 96 08/20/17 12:01 82 30 H 71/44 96 08/20/17 12:00 98.6 F 08/20/17 11:51 82 30 H 216/33 95 08/20/17 11:41 82 30 H 216/33 96 08/20/17 11:31 82 30 H 216/33 96 08/20/17 11:21 82 30 H 216/33 97 08/20/17 11:11 81 30 H 216/33 96 08/20/17 11:01 81 30 H 216/33 95 08/20/17 10:51 85 30 H 216/33 97 08/20/17 10:41 80 30 H 216/33 97 08/20/17 10:31 79 30 H 216/33 97 08/20/17 10:21 79 30 H 216/33 97 08/20/17 10:11 80 30 H 216/33 97 08/20/17 10:01 81 30 H 216/33 97 08/20/17 09:51 81 30 H 216/33 99 08/20/17 09:41 78 30 H 117/30 98 08/20/17 09:31 78 30 H 130/58 98 08/20/17 09:21 78 30 H 98/65 100 08/20/17 09:11 78 22 130/58 100 08/20/17 09:01 78 30 H 130/58 100 08/20/17 08:51 77 30 H 149/37 100 08/20/17 08:41 80 30 H 167/75 100 08/20/17 08:39 78 167/75 100 08/20/17 08:31 77 30 H 167/75 100 08/20/17 08:21 77 30 H 141/59 100 08/20/17 08:11 77 30 H 147/93 100 08/20/17 08:01 77 30 H 147/93 100 08/20/17 08:00 93 F L 08/20/17 07:51 78 30 H 147/93 100 08/20/17 07:41 78 30 H 147/93 100 08/20/17 07:31 78 30 H 147/93 99 08/20/17 07:21 78 30 H 147/93 99 08/20/17 07:11 78 30 H 147/93 99 08/20/17 07:01 78 30 H 147/93 100 08/20/17 06:51 77 30 H 161/35 98 08/20/17 06:43 76 30 H 100 08/20/17 06:41 75 30 H 161/35 99 08/20/17 06:31 72 30 H 78/51 99 08/20/17 06:21 75 30 H 78/51 100 08/20/17 06:11 76 30 H 135/112 99 08/20/17 06:01 67 30 H 135/112 98 08/20/17 05:51 69 30 H 135/112 08/20/17 05:41 78 30 H 135/112 99 08/20/17 05:30 78 30 H 135/112 08/20/17 05:24 76 143/68 100 08/20/17 05:21 75 30 H 143/68 100 08/20/17 05:11 77 30 H 154/97 08/20/17 05:01 76 30 H 154/97 100 08/20/17 04:51 78 30 H 154/97 100 08/20/17 04:41 80 30 H 154/97 100 08/20/17 04:35 96.1 F L 08/20/17 04:31 80 30 H 186/94 100 08/20/17 04:21 81 30 H 186/94 100 08/20/17 04:11 78 17 99/13 99 08/20/17 04:01 77 18 99/13 97 08/20/17 03:51 74 16 99/13 99 08/20/17 03:41 71 30 H 99/13 100 08/20/17 03:31 71 29 H 99/13 100 08/20/17 03:21 74 30 H 99/13 100 08/20/17 03:11 75 30 H 99/13 100 08/20/17 03:01 75 30 H 99/13 100 08/20/17 02:51 74 30 H 99/13 100 08/20/17 02:41 74 30 H 99/13 100 08/20/17 02:30 99/13 99 08/20/17 02:21 73 30 H 99/13 100 08/20/17 02:20 74 30 H 100 08/20/17 02:11 75 30 H 99/13 100 08/20/17 02:01 74 30 H 99/13 100 08/20/17 01:52 74 08/20/17 01:51 74 30 H 99/13 99 08/20/17 01:41 73 30 H 105/62 100 08/20/17 01:31 72 30 H 105/62 98 08/20/17 01:21 71 30 H 105/62 100 08/20/17 01:11 70 30 H 104/49 100 08/20/17 01:00 69 30 H 104/46 99 08/20/17 00:51 66 30 H 104/46 100 08/20/17 00:41 69 30 H 84/42 100 08/20/17 00:30 71 30 H 84/42 100 08/20/17 00:21 68 30 H 66/25 100 08/20/17 00:12 69 72/42 99 08/20/17 00:11 66 30 H 72/42 98 08/20/17 00:01 68 30 H 72/42 100 08/19/17 23:51 69 30 H 66/33 98 08/19/17 23:44 64 100 08/19/17 23:41 69 30 H 74/26 100 08/19/17 23:30 68 30 H 74/26 100 08/19/17 23:21 67 20 76/36 100 08/19/17 23:11 65 20 83/42 100 08/19/17 23:01 65 20 83/42 100 08/19/17 23:00 65 20 83/42 99 08/19/17 22:51 65 20 82/42 99 08/19/17 22:41 65 20 78/36 98 08/19/17 22:31 62 20 57/24 93 08/19/17 22:21 68 20 118/80 87 08/19/17 22:16 94.8 F L 08/19/17 22:11 73 17 96 08/19/17 22:00 83 54 L 20 123/41 100 08/19/17 21:53 94 H 08/19/17 21:50 75 17 71 L 08/19/17 21:42 57 L 20 08/19/17 21:30 77 19 90/52 08/19/17 20:41 76 20 90/52 97 08/19/17 20:30 77 19 90/52 98 08/19/17 20:21 69 20 71/39 94 08/19/17 20:15 68 72/37 08/19/17 20:11 70 24 100/61 94 08/19/17 20:05 69 100/61 95 08/19/17 20:00 77 23 100/61 98 08/19/17 19:51 77 23 100/63 98 08/19/17 19:45 77 100/63 08/19/17 19:41 77 25 H 97/55 99 08/19/17 19:30 79 22 97/55 98 08/19/17 19:21 79 24 90/52 98 08/19/17 19:15 78 90/52 08/19/17 19:11 77 23 93/48 100 08/19/17 19:00 77 24 82/35 97 08/19/17 18:51 76 24 91/29 98 08/19/17 18:45 75 91/29 08/19/17 18:41 75 24 107/65 99 08/19/17 18:30 71 23 105/64 100 08/19/17 18:25 69 25 H 110/67 100 08/19/17 18:21 67 24 110/67 100 08/19/17 18:15 65 24 110/67 99 08/19/17 18:10 63 24 107/62 99 08/19/17 18:05 62 24 103/61 99 08/19/17 18:00 62 24 103/65 99 08/19/17 17:55 61 23 93/59 99 08/19/17 17:50 61 22 98/60 98 08/19/17 17:45 61 24 98/61 98 08/19/17 17:40 61 20 102/61 98 08/19/17 17:35 61 17 101/62 97 08/19/17 17:30 61 13 103/60 97 08/19/17 17:25 61 15 103/61 98 08/19/17 17:23 61 24 101/61 08/19/17 17:20 60 21 99/58 98 08/19/17 17:15 61 19 101/62 96 08/19/17 17:10 61 11 L 102/63 97 08/19/17 17:05 61 19 100/63 97 08/19/17 17:00 61 17 106/66 99 08/19/17 16:55 61 16 106/64 98 08/19/17 16:50 61 16 104/64 99 08/19/17 16:45 61 16 104/63 98 08/19/17 16:40 61 7 L 105/63 98 08/19/17 16:35 60 15 104/62 97 08/19/17 16:30 60 18 104/62 96 08/19/17 16:25 61 12 97/68 99 08/19/17 16:20 60 10 L 105/66 100 08/19/17 16:15 60 24 105/63 100 08/19/17 16:10 59 L 24 103/64 100 08/19/17 16:05 59 L 24 104/61 100 08/19/17 16:00 59 L 23 103/60 100 08/19/17 15:55 59 L 24 107/60 100 08/19/17 15:50 59 L 24 107/59 100 08/19/17 15:45 59 L 24 108/60 100 08/19/17 15:40 59 L 24 103/64 100 08/19/17 15:35 59 L 24 108/62 100 08/19/17 15:31 59 L 24 104/63 100 08/19/17 15:25 59 L 24 112/68 100 08/19/17 15:21 59 L 24 119/69 100 08/19/17 15:15 58 L 24 119/70 100 08/19/17 15:11 58 L 24 118/72 100 08/19/17 15:05 57 L 19 116/70 100 08/19/17 15:00 57 L 9 L 122/68 100 08/19/17 14:55 57 L 14 119/71 100 08/19/17 14:50 57 L 12 113/63 100 08/19/17 14:45 57 L 20 138/111 100 01/25/18 14:41 57 L 20 113/62 100 08/19/17 14:35 57 L 20 122/72 100 08/19/17 14:31 57 L 20 121/71 100 08/19/17 14:25 58 L 20 128/71 100 08/19/17 14:21 57 L 20 128/73 100 08/19/17 14:15 57 L 19 85/58 08/19/17 14:10 57 L 21 124/75 99 08/19/17 14:05 58 L 17 125/74 08/19/17 14:00 57 L 20 122/74 100 08/19/17 13:55 57 L 20 121/73 08/19/17 13:50 57 L 19 120/74 08/19/17 13:45 57 L 20 123/74 08/19/17 13:40 57 L 21 122/73 08/19/17 13:39 100 08/19/17 13:35 57 L 19 122/71 100 - Physical Examination General: Other (intubated on the vent) HEENT: Positive: Other (pupils fixed) Cardiac: Positive: Reg Rate and Rhythm Extremities: Absent: edema - Labs and Meds Cardiac Enzymes 08/20/17 Range/Units 10:45 AST 697 H (5-40) units/L CBC 08/20/17 Range/Units 10:45 WBC 6.3 (4.5-11.0) K/mm3 RBC 2.45 L (3.65-5.03) M/mm3 Hgb 6.4 L (10.1-14.3) gm/dl Hct 19.6 L* (30.3-42.9) % Plt Count 77 L (140-440) K/mm3 Comprehensive Metabolic Panel 08/19/17 08/20/17 Range/Units 22:24 10:45 Sodium 138 (137-145) mmol/L Potassium 4.3 D (3.6-5.0) mmol/L Chloride 97.5 L (98-107) mmol/L Carbon Dioxide 12 L (22-30) mmol/L BUN 90 H (7-17) mg/dL Creatinine 13.5 H (0.7-1.2) mg/dL Glucose 110 H (65-100) mg/dL Calcium 5.7 L* (8.4-10.2) mg/dL Direct Bilirubin 0.5 H (0-0.2) mg/dL Indirect Bilirubin 0.1 mg/dL AST 697 H (5-40) units/L ALT 202 H (7-56) units/L Alkaline Phosphatase 162 H (35-129) units/L Total Protein 5.1 L (6.3-8.2) g/dL Albumin 2.7 L (3.9-5) g/dL
[2017-08-20] MEDS ORDERED: PROTONIX IV SCH (14:00)
[2017-08-20 14:04] LABS: C-Reactive Protein 2.3 mg/dL (0.00-1.30); Calcium 6.7 mg/dL (8.4-10.2)
--- NOTE | 2017-08-20 14:05 | Progress Note ---
Assessment and Plan Impression: * ESRD * S/P cardiac arrest * Uremia * Hyperkalemia * Acute Resp Failure * Metabolic Acidosis * anemia in chronic disease Plan: * Vasopressors to keep MAP >65 * strict i/os * Sodium bicarbonate gtt * treat k medically * PRN PRBCs * epogen with HD * initiate hemodialysis as hemodynamics allow--until uremia and acidosis improved * likely will need daily HD for solute and volume control * daily lytes * plan on NO UF intially with hd to keep hemodynamics stable * D/W family at bedside Subjective Date of service: 08/20/17 Principal diagnosis: esrd, sepsis, metabolic acidosis Interval history: intubated and sedate Objective - Vital Signs Vital signs: Vital Signs - 12hr 08/20/17 08/20/17 08/20/17 02:11 02:20 02:21 Temperature Pulse Rate 75 73 Pulse Rate [ 74 From Monitor] Respiratory 30 H 30 H 30 H Rate Blood Pressure 99/13 99/13 O2 Sat by Pulse 100 100 100 Oximetry 08/20/17 08/20/17 08/20/17 02:30 02:41 02:51 Temperature Pulse Rate 74 74 Pulse Rate [ From Monitor] Respiratory 30 H 30 H Rate Blood Pressure 99/13 99/13 99/13 O2 Sat by Pulse 99 100 100 Oximetry 08/20/17 08/20/17 08/20/17 03:01 03:11 03:21 Temperature Pulse Rate 75 75 74 Pulse Rate [ From Monitor] Respiratory 30 H 30 H 30 H Rate Blood Pressure 99/13 99/13 99/13 O2 Sat by Pulse 100 100 100 Oximetry 08/20/17 08/20/17 08/20/17 03:31 03:41 03:51 Temperature Pulse Rate 71 71 74 Pulse Rate [ From Monitor] Respiratory 29 H 30 H 16 Rate Blood Pressure 99/13 99/13 99/13 O2 Sat by Pulse 100 100 99 Oximetry 08/20/17 08/20/17 08/20/17 04:01 04:11 04:21 Temperature Pulse Rate 77 78 81 Pulse Rate [ From Monitor] Respiratory 18 17 30 H Rate Blood Pressure 99/13 99/13 186/94 O2 Sat by Pulse 97 99 100 Oximetry 08/20/17 08/20/17 08/20/17 04:31 04:35 04:41 Temperature 96.1 F L Pulse Rate 80 80 Pulse Rate [ From Monitor] Respiratory 30 H 30 H Rate Blood Pressure 186/94 154/97 O2 Sat by Pulse 100 100 Oximetry 08/20/17 08/20/17 08/20/17 04:51 05:01 05:11 Temperature Pulse Rate 78 76 77 Pulse Rate [ From Monitor] Respiratory 30 H 30 H 30 H Rate Blood Pressure 154/97 154/97 154/97 O2 Sat by Pulse 100 100 Oximetry 08/20/17 08/20/17 08/20/17 05:21 05:24 05:30 Temperature Pulse Rate 75 76 78 Pulse Rate [ From Monitor] Respiratory 30 H 30 H Rate Blood Pressure 143/68 143/68 135/112 O2 Sat by Pulse 100 100 Oximetry 08/20/17 08/20/17 08/20/17 05:41 05:51 06:01 Temperature Pulse Rate 78 69 67 Pulse Rate [ From Monitor] Respiratory 30 H 30 H 30 H Rate Blood Pressure 135/112 135/112 135/112 O2 Sat by Pulse 99 98 Oximetry 08/20/17 08/20/17 08/20/17 06:11 06:21 06:31 Temperature Pulse Rate 76 75 72 Pulse Rate [ From Monitor] Respiratory 30 H 30 H 30 H Rate Blood Pressure 135/112 78/51 78/51 O2 Sat by Pulse 99 100 99 Oximetry 08/20/17 08/20/17 08/20/17 06:41 06:43 06:51 Temperature Pulse Rate 75 77 Pulse Rate [ 76 From Monitor] Respiratory 30 H 30 H 30 H Rate Blood Pressure 161/35 161/35 O2 Sat by Pulse 99 100 98 Oximetry 08/20/17 08/20/17 08/20/17 07:01 07:11 07:21 Temperature Pulse Rate 78 78 78 Pulse Rate [ From Monitor] Respiratory 30 H 30 H 30 H Rate Blood Pressure 147/93 147/93 147/93 O2 Sat by Pulse 100 99 99 Oximetry 08/20/17 08/20/17 08/20/17 07:31 07:41 07:51 Temperature Pulse Rate 78 78 78 Pulse Rate [ From Monitor] Respiratory 30 H 30 H 30 H Rate Blood Pressure 147/93 147/93 147/93 O2 Sat by Pulse 99 100 100 Oximetry 08/20/17 08/20/17 08/20/17 08:00 08:01 08:11 Temperature 93 F L Pulse Rate 77 77 Pulse Rate [ From Monitor] Respiratory 30 H 30 H Rate Blood Pressure 147/93 147/93 O2 Sat by Pulse 100 100 Oximetry 08/20/17 08/20/17 08/20/17 08:21 08:31 08:39 Temperature Pulse Rate 77 77 78 Pulse Rate [ From Monitor] Respiratory 30 H 30 H Rate Blood Pressure 141/59 167/75 167/75 O2 Sat by Pulse 100 100 100 Oximetry 08/20/17 08/20/17 08/20/17 08:41 08:51 09:01 Temperature Pulse Rate 80 77 78 Pulse Rate [ From Monitor] Respiratory 30 H 30 H 30 H Rate Blood Pressure 167/75 149/37 130/58 O2 Sat by Pulse 100 100 100 Oximetry 08/20/17 08/20/17 08/20/17 09:11 09:21 09:31 Temperature Pulse Rate 78 78 78 Pulse Rate [ From Monitor] Respiratory 22 30 H 30 H Rate Blood Pressure 130/58 98/65 130/58 O2 Sat by Pulse 100 100 98 Oximetry 08/20/17 08/20/17 08/20/17 09:41 09:51 10:01 Temperature Pulse Rate 78 81 81 Pulse Rate [ From Monitor] Respiratory 30 H 30 H 30 H Rate Blood Pressure 117/30 216/33 216/33 O2 Sat by Pulse 98 99 97 Oximetry 08/20/17 08/20/17 08/20/17 10:11 10:21 10:31 Temperature Pulse Rate 80 79 79 Pulse Rate [ From Monitor] Respiratory 30 H 30 H 30 H Rate Blood Pressure 216/33 216/33 216/33 O2 Sat by Pulse 97 97 97 Oximetry 08/20/17 08/20/17 08/20/17 10:41 10:51 11:01 Temperature Pulse Rate 80 85 81 Pulse Rate [ From Monitor] Respiratory 30 H 30 H 30 H Rate Blood Pressure 216/33 216/33 216/33 O2 Sat by Pulse 97 97 95 Oximetry 08/20/17 08/20/17 08/20/17 11:11 11:21 11:31 Temperature Pulse Rate 81 82 82 Pulse Rate [ From Monitor] Respiratory 30 H 30 H 30 H Rate Blood Pressure 216/33 216/33 216/33 O2 Sat by Pulse 96 97 96 Oximetry 08/20/17 08/20/17 08/20/17 11:41 11:51 12:00 Temperature 98.6 F Pulse Rate 82 82 Pulse Rate [ From Monitor] Respiratory 30 H 30 H Rate Blood Pressure 216/33 216/33 O2 Sat by Pulse 96 95 Oximetry 08/20/17 08/20/17 08/20/17 12:01 12:11 12:24 Temperature Pulse Rate 82 82 82 Pulse Rate [ From Monitor] Respiratory 30 H 30 H Rate Blood Pressure 71/44 71/44 O2 Sat by Pulse 96 96 97 Oximetry 08/20/17 13:52 Temperature Pulse Rate 80 Pulse Rate [ From Monitor] Respiratory Rate Blood Pressure O2 Sat by Pulse 96 Oximetry - Lab 08/20/17 10:45 08/19/17 22:24 Most recent lab results Calcium 5.7 mg/dL (8.4-10.2) L* 08/19/17 22:24 Phosphorus 14.00 mg/dL (2.5-4.5) H 08/19/17 15:30 Magnesium 2.20 mg/dL (1.7-2.3) 08/19/17 15:30
--- NOTE | 2017-08-20 14:11 | Consultation ---
History of Present Illness Consult date: 08/20/17 Requesting physician: JONH OSPINA Reason for Consult: anoxic encephalopathy History of present illness: Unfortunate 42 year old female who has a history of hypertension, recently diagnosed with renal failure and also told about 3 months ago that she had a cardiomyopathy. The patient suffered a cardiac arrest at home on 08/19/17. EMS found her in v-fib. She received ACLS protocol, had spells of asystole, was intubated in the esophagus, presented to ER. In the ER the patient suffered several more arrests, but with ACLS protocol was brought back into rhythm. She is unresponsive, on the ventilator, on pressors, no sedation. We are asked to provide a neurological evaluation. Past History Past Medical History: heart failure, renal failure Medications and Allergies Allergies Allergy/AdvReac Type Severity Reaction Status Date / Time No Known Allergies Allergy Unverified 03/29/13 23:26 Home Medications Medication Instructions Recorded Confirmed Last Taken Type Calcium Acetate [Phoslo] 3 tab PO QDAY 08/19/17 08/19/17 Unknown History Carvedilol [Coreg] 12.5 mg PO BID 08/19/17 08/19/17 Unknown History Furosemide [Lasix TAB] 40 mg PO QDAY 08/19/17 08/19/17 Unknown History Losartan [Cozaar] 50 mg PO QDAY 08/19/17 08/19/17 Unknown History Active Meds: Active Medications Albumin Human (Alburx 25% (Albumin)) 25 gm IV LINCOLN PRN PRN Reason: Hypotension Last Admin: 08/19/17 21:04 Dose: 25 gm Lipase/Protease/Amylase (Pancreaze Dr 10,500 Unit) 1 each FEEDTUBE PRN PRN PRN Reason: For Clogged Feeding Tube Epoetin Nicholas (Procrit) 10,000 unit IV LINCOLN PRN PRN Reason: hemodialysis Hydrophilic Ointment (Vaseline Lip Therapy) 1 applic TP Q2HR PRN PRN Reason: Dry Lips Amiodarone HCl 900 mg/ (Dextrose) 500 mls @ 0 mls/hr IV DIRECT OZIEL Last Admin: 08/20/17 05:56 Dose: 0.5 mls/hr Epinephrine 16 mg/ Sodium (Chloride) 250 mls @ 1.87 mls/hr IV TITR OZIEL; 2 MCG/ MIN PRN Reason: Protocol Last Admin: 08/20/17 04:21 Dose: 10 mcg/min, 9.37 mls/hr Sodium Chloride (Nacl 0.9%) 100 mls @ 999 mls/hr IV LINCOLN PRN PRN Reason: Hypotension Vasopressin 20 unit/ Sodium (Chloride) 101 mls @ 9.09 mls/hr IV TITR OZIEL; 0.03 UNITS/MIN PRN Reason: Protocol Last Admin: 08/20/17 10:19 Dose: 0.03 units/min, 9.09 mls/hr Norepinephrine 8 mg/ Sodium (Chloride) 250 mls @ 3.75 mls/hr IV TITR OZIEL; 2 MCG /MIN PRN Reason: Protocol Last Titration: 08/20/17 13:30 Dose: 28 mcg/min, 52.5 mls/hr Sodium Bicarbonate 150 meq/ (Dextrose) 1,150 mls @ 100 mls/hr IV DIRECT OZIEL Insulin Aspart (Novolog) 0 units SUB-Q Q6H OZIEL PRN Reason: Protocol Last Admin: 08/20/17 03:39 Dose: Not Given Multi-Ingred Cream/Lotion/Oil/Oint (Artificial Tears Ophth Oint) 1 applic OU Q4HR PRN PRN Reason: Dry Eye(s) Pantoprazole Sodium (Protonix) 40 mg IV BID OZIEL Simple Syrup (Simple Syrup) 15 ml FEEDTUBE PRN PRN PRN Reason: Hypoglycemia Simple Syrup (Simple Syrup) 30 ml FEEDTUBE PRN PRN PRN Reason: Hypoglycemia Sodium Bicarbonate (Sodium Bicarbonate) 325 mg FEEDTUBE PRN PRN PRN Reason: For Clogged Feeding Tube Review of Systems ROS unobtainable: due to endotracheal tube Physical Examination - Vital Signs Vital Signs: Vital Signs Resp 98 H 08/19/17 08:10 - Physical Exam Narrative exam: Neurological exam - eyes closed on the ventilator. CN's - pupils left 3mm, nonreactive, rt. 4 mm nonreactive Eyes are midline. face symmetric. No corneal response. no spontaneous movement No movement or withdrawal to painful stimuli, all 4 limbs. No reflexes obtained. No babinski - Constitutional General appearance: acutely ill - Respiratory Respiratory: Present: rhonchi - Cardiovascular Cardiovascular: Present: regular rate, normal S1, normal S2 Extremities: Present: other (trace peripheral edema.) - Gastrointestinal Gastrointestinal: Present: soft Results - Laboratory Findings CBC and BMP: 08/20/17 10:45 08/20/17 10:45 Abnormal Lab Findings: Abnormal Labs 08/19/17 08/19/17 08/19/17 08:40 08:40 08:40 RBC 2.30 L Hgb 6.0 L Hct 20.7 L MCH 26 L MCHC 29 L RDW 17.1 H Plt Count Lymph % (Auto) 43.3 H Seg Neuts % (Manual) Lymphocytes % (Manual) Nucleated RBC % Lymphocytes # (Manual) POC ABG pH POC ABG pCO2 POC ABG pO2 Potassium 6.3 H* Chloride 97.7 L Carbon Dioxide 7 L* BUN 125 H Creatinine 18.3 H Glucose 198 H POC Glucose Lactic Acid 14.30 H* Calcium 6.6 L Phosphorus TIBC Transferrin Ferritin Direct Bilirubin AST ALT Alkaline Phosphatase Troponin T 0.117 H* C-Reactive Protein NT-Pro-B Natriuret Pep > 77293 H Total Protein Albumin Triglycerides 183 H LDL Cholesterol Direct 18 L HDL Cholesterol 18 L Crossmatch 08/19/17 08/19/17 08/19/17 09:20 12:30 12:55 RBC Hgb Hct MCH MCHC RDW Plt Count Lymph % (Auto) Seg Neuts % (Manual) Lymphocytes % (Manual) Nucleated RBC % Lymphocytes # (Manual) POC ABG pH POC ABG pCO2 POC ABG pO2 Potassium Chloride Carbon Dioxide BUN Creatinine Glucose POC Glucose 131 H Lactic Acid Calcium Phosphorus TIBC Transferrin Ferritin Direct Bilirubin AST ALT Alkaline Phosphatase Troponin T 0.319 H* D C-Reactive Protein NT-Pro-B Natriuret Pep Total Protein Albumin Triglycerides LDL Cholesterol Direct HDL Cholesterol Crossmatch See Detail 08/19/17 08/19/17 08/19/17 14:42 15:10 15:30 RBC Hgb Hct MCH MCHC RDW Plt Count Lymph % (Auto) Seg Neuts % (Manual) Lymphocytes % (Manual) Nucleated RBC % Lymphocytes # (Manual) POC ABG pH 6.945 L POC ABG pCO2 POC ABG pO2 241 H Potassium Chloride Carbon Dioxide BUN Creatinine Glucose POC Glucose Lactic Acid Calcium Phosphorus 14.00 H TIBC 189 L Transferrin 143 L Ferritin Direct Bilirubin AST ALT Alkaline Phosphatase Troponin T 0.386 H* D C-Reactive Protein NT-Pro-B Natriuret Pep Total Protein Albumin Triglycerides LDL Cholesterol Direct HDL Cholesterol Crossmatch 08/19/17 08/19/17 08/19/17 15:30 22:08 22:24 RBC Hgb Hct MCH MCHC RDW Plt Count Lymph % (Auto) Seg Neuts % (Manual) Lymphocytes % (Manual) Nucleated RBC % Lymphocytes # (Manual) POC ABG pH POC ABG pCO2 POC ABG pO2 Potassium Chloride 97.5 L Carbon Dioxide 12 L BUN 90 H Creatinine 13.5 H Glucose 110 H POC Glucose 110 H Lactic Acid Calcium 5.7 L* Phosphorus TIBC Transferrin Ferritin 1920.0 H Direct Bilirubin AST ALT Alkaline Phosphatase Troponin T C-Reactive Protein NT-Pro-B Natriuret Pep Total Protein Albumin Triglycerides LDL Cholesterol Direct HDL Cholesterol Crossmatch 08/20/17 08/20/17 08/20/17 00:20 05:43 10:45 RBC 2.45 L Hgb 6.4 L Hct 19.6 L* MCH 26 L MCHC RDW 15.9 H Plt Count 77 L Lymph % (Auto) Seg Neuts % (Manual) 94.0 H Lymphocytes % (Manual) 0 L Nucleated RBC % 4.0 H Lymphocytes # (Manual) 0.0 L POC ABG pH 7.329 L POC ABG pCO2 25.8 L POC ABG pO2 Potassium Chloride Carbon Dioxide BUN Creatinine Glucose POC Glucose 115 H Lactic Acid Calcium Phosphorus TIBC Transferrin Ferritin Direct Bilirubin AST ALT Alkaline Phosphatase Troponin T C-Reactive Protein NT-Pro-B Natriuret Pep Total Protein Albumin Triglycerides LDL Cholesterol Direct HDL Cholesterol Crossmatch 08/20/17 08/20/17 08/20/17 10:45 10:45 13:37 RBC Hgb Hct MCH MCHC RDW Plt Count Lymph % (Auto) Seg Neuts % (Manual) Lymphocytes % (Manual) Nucleated RBC % Lymphocytes # (Manual) POC ABG pH POC ABG pCO2 POC ABG pO2 Potassium Chloride Carbon Dioxide 13 L BUN 96 H Creatinine 13.8 H Glucose 109 H POC Glucose Lactic Acid 4.30 H* Calcium 6.7 L D Phosphorus TIBC Transferrin Ferritin Direct Bilirubin 0.5 H AST 697 H ALT 202 H Alkaline Phosphatase 162 H Troponin T C-Reactive Protein 2.30 H NT-Pro-B Natriuret Pep Total Protein 5.1 L Albumin 2.7 L Triglycerides LDL Cholesterol Direct HDL Cholesterol Crossmatch 08/20/17 13:55 RBC Hgb Hct MCH MCHC RDW Plt Count Lymph % (Auto) Seg Neuts % (Manual) Lymphocytes % (Manual) Nucleated RBC % Lymphocytes # (Manual) POC ABG pH 7.295 L POC ABG pCO2 22.4 L POC ABG pO2 Potassium Chloride Carbon Dioxide BUN Creatinine Glucose POC Glucose Lactic Acid Calcium Phosphorus TIBC Transferrin Ferritin Direct Bilirubin AST ALT Alkaline Phosphatase Troponin T C-Reactive Protein NT-Pro-B Natriuret Pep Total Protein Albumin Triglycerides LDL Cholesterol Direct HDL Cholesterol Crossmatch Echo - 20 % EF. CT brain ordered Assessment and Plan 42 year old female with diagnoses of hypertension, ESRD, cardiomyopathy, anemia , sustained a cardiopulmonary arrest on 08/19/17. At present she has no neurological function, off sedatives. Her metabolic and cardiovascular status are now being optimized in the CCU. In light of the fact that she has had several resucitations, one period of prolonged hypoxia (enroute to hospital) she most likely has suffered anoxic brain injury. Prognosis is grim. Plan - CT brain
[2017-08-20] MEDS ORDERED: NACL 0.9% 100 ML IV PRN (14:40)
[2017-08-20] MEDS ORDERED: VANCOMYCIN/NS 1 GM/250 ML 1 GM/250 ML BAG IV SCH (15:00)
[2017-08-20] MEDS ORDERED: SODIUM BICARBONATE 150 MEQ in D5W 1,000 ML IV SCH (15:00)
[2017-08-20] MEDS ORDERED: LEVAQUIN 500MG/100ML 500 MG/100 ML BAG IV SCH (16:00)
[2017-08-20] MEDS ORDERED: VANCOMYCIN 2,000 MG in NACL 0.9% 500 ML 500 ML IV ONE (17:00)
[2017-08-20] MEDS ORDERED: ADRENALIN ONE (17:20)
[2017-08-20] MEDS: DUONEB *Not for PRN Use IH SCH ×2 (20:43)
--- NOTE | 2017-08-20 22:08 | XRay Report ---
FINAL REPORT PROCEDURE: Chest. TECHNIQUE: Portable AP view. HISTORY: Respiratory failure, follow-up. COMPARISON: No prior studies are available for comparison. FINDINGS: The patient is rotated to the left. The heart size is probably enlarged. There is some hazy perihilar opacity bilaterally. There are some air bronchograms visible. The findings could represent pulmonary edema. Follow-up imaging and clinical correlation is recommended. There are no definite pleural effusions. An endotracheal tube is in satisfactory position. A nasogastric tube terminates in the distal esophagus. The regional skeleton appears intact. IMPRESSION: Abnormal perihilar lung opacity. Question cardiomegaly. Suboptimal positioning of the nasogastric tube.
[2017-08-20] MEDS ORDERED: SODIUM CHLORIDE FLUSH SYRINGE 10 ML IV ONE (22:45)
--- NOTE | 2017-08-20 23:21 | Event Note ---
Date: 08/20/17 42 y/o female was admitted yesterday for cardiac arrest and was coded several times after admission 4 times in my presence. Today she was coded 3 times 22: 28-11:08, was coded for PEA according to ACLS protocol, resuscitated 2 times successfully but we couldn't salvage on the 3rd times. Patient was coded back to back. I have tried to reach to get in touch with her several times today and yesterday unsuccessfully.
--- NOTE | 2017-08-20 23:23 | Death Note ---
Note Date of : 08/20/17 Time of : 23:08 Time Pronounced: 23:08 - Preliminary Cause of (problem) (1) PEA (Pulseless electrical activity) Preliminary cause of (2) Cardiac arrest Preliminary cause of
[2017-08-21] MEDS ORDERED: NOVOLOG SUB-Q SCH
[2017-08-21 00:14] VITALS: BP 140/107
[2017-08-21] MEDS ORDERED: ADRENALIN ONE ×2 (11:14→14:48)
--- NOTE | 2017-08-21 12:17 | Consultation ---
PULMONARY CRITICAL CARE CONSULT NOTE CONSULTING PHYSICIAN: Dr. Grossman. REASON FOR CONSULTATION: Severe sepsis, acute hypoxemic respiratory failure, acute encephalopathy. CHIEF COMPLAINT AND HISTORY OF PRESENT ILLNESS: The patient is a 42-year-old female who according to her recently found out that she had renal failure as well as cardiomyopathy. Moved from [place] to the [facility], it is about 3 months now. The report is that her daughter heard the patient fall in the bathroom. He got to her, he says, within about a minute or two. She was still having respiratory effort, although it was agonal. There was some emesis looking material in her mouth at that time. Emergency Medical Services got there probably about 10 minutes later. They were unable to intubate her successfully. She had a gastric intubation. She was brought into the Emergency Room with a VFib arrest. As the EMS services had found her in VFib, she had been defibrillated at that point. She went into PEA and then asystole. In the Emergency Room, she was endotracheally intubated. ACLS protocol was continued. She was found to be severely septic. ICU admission was requested. She finally was brought up to the Intensive Care Unit. She had another cardiopulmonary arrest. At that time, her pH was about 6.90 on the blood gas. She was severely acidotic. Resuscitative efforts were started including IV bicarbonate supplementation and a drip as well as hypoventilation. When I stopped by to see her, she was on full mechanical ventilatory support, assist control mode, tidal volume 500, rate of 30, PEEP of 5, O sats had been dropped down to about 70%. She was nonresponsive. With regards to her tobacco use/abuse history, that was unknown. This really is as much of the history of presentation as I have. PAST MEDICAL HISTORY: Cardiomyopathy. She is morbidly obese. History of renal failure, just about to begin dialysis. PAST SURGICAL HISTORY: She does have an AV graft, I believe, in the left upper extremity. MEDICATIONS: Medications she was on at the time I stopped by to see her were reviewed. Pertinent medications included the fact that she was on vasopressin at 0.03 units per minute. Amiodarone drip was going I believe at 1 mg per minute. Insulin via sliding scale, Levophed drip was at 30 mcg per minute. She also was on epinephrine at 10 mcg per minute. She was on a D5W drip with 3 amps of bicarbonate per liter going at 100 mL per hour. ALLERGIES: UNKNOWN. DIET: Morbidly obese, acute weight loss or gain history is unknown. FAMILY AND SOCIAL HISTORY: She is . I believe she has a daughter. Alcohol, tobacco, or illicit drug use or abuse history is unknown. REVIEW OF SYSTEMS: Unobtainable secondary to the patient's medical and mental condition. Since she has been here, no witnessed seizures. She has had a cardiac arrest x 2. No gross hematochezia. She does have bloody secretions from the NG tube. No gross hematuria, no hematemesis, and occasional bloody tracheal secretions are noted. REVIEW OF SYSTEMS: Otherwise unobtainable. PHYSICAL EXAMINATION: At presentation in the Emergency Room: VITAL SIGNS: The first temperature I have was 97.5. Her presentation pulse was 156, respiratory rate was 13, blood pressure 139/26, quickly went down to 83/35, oxygen sats initially was 95%, inspired oxygen concentration was not recorded. GENERAL: She is a middle aged looking female. She is obese. She is normocephalic, atraumatic in moderate respiratory distress on the mechanical ventilator. ET tube around 23-24 cm at the lips. HEAD, EYES, EARS, NOSE, AND THROAT: She is anicteric. No conjunctival erythema. NECK: No gross jugular venous distention, no thyromegaly. Grossly no palpable lymph nodes in the supraclavicular or submandibular lymph node chains. Oropharynx was moist. LUNGS: Auscultation of both lung wright, bibasilar inspiratory rales. No wheezing. CARDIOVASCULAR: Heart sounds 1 and 2 were heard, regular rate and rhythm at the time of my evaluation. No rubs, no murmurs. ABDOMEN: Soft, full, bowel sounds are positive, nontender, no palpable hepatosplenomegaly grossly. EXTREMITIES: Without overt digital clubbing or cyanosis. She had trace pedal edema bilaterally. Dorsalis pedis pulses were weakly palpable. NEUROLOGIC: Pupils were unequal. The left pupil when I examined was about 5 mm, nonreactive. The right pupil about 3-4 mm nonreactive. Extraocular muscle movements could not be assessed. She had no spontaneous movements to extremities. LABORATORY DATA: From my review are as follows: Admission white count 7300, hemoglobin was 6.0, hematocrit 20.7, platelet count 154. No band forms were reported. Arterial blood gas showed a pH of 6.95, pCO2 of 38, pO2 of 241 that was on 100% FiO2. Vent settings not recorded. Serum sodium was 142, potassium 6.3, chloride 97, bicarbonate was 7, BUN 123, creatinine 18.3 and glucose was 198. Lactic acid level was 14.3. Troponin 0.117. LDL cholesterol was 18. Hepatitis screen nonreactive. Most recent test, white count 6.3, hemoglobin is 6.4. This is status post 2 units of packed red cells. Potassium is 4.4 today. Lactic acid level is down to 4.3. ABG with pH of 7.30, pCO2 of 22, pO2 of 94, that is on 70% FiO2 and the above-mentioned ventilator settings. Tracheal aspirate has been sent, no growth to date. Chest x-ray has been reviewed personally. I also reviewed the radiologist's interpretation. The most recent chest x-ray essentially shows ET tube. The tip appears to be about 3-4 cm above the graham. The film is rotated to the left severely. Bilateral interstitial type infiltrates are noted. No overt pleural effusions, no gross pneumothorax, no gross bony fracture. Cardiovascular silhouette appears enlarged. ASSESSMENT: 1. Acute hypoxemic respiratory failure, on mechanical ventilator support. 2. Status post cardiopulmonary arrest, ventricular fibrillation arrest, initial rhythm seen. 3. End-stage renal disease requiring dialysis. 4. Anemia, possible acute blood loss component. 5. Morbid obesity. 6. Severe metabolic acidosis. 7. Lactic acidosis. 8. Likely acute pulmonary edema plus or minus pneumonia. PLAN: We will continue to hyperventilate her in the short term to compensate for the metabolic acidosis. Oxygen will be weaned to keep sats greater than or equal to about 90%. Aspiration precautions will be maintained. Bronchodilators will be ordered and pulmonary hygiene will be per the respiratory therapist. As we begin to come down on her vasopressors, hopefully she can get dialysis to help with the acid base disturbance with the volume overload. Aspiration precautions and ventilator-associated pneumonia bundle will be addressed daily. I will empirically go ahead and draw a couple of blood cultures and put her on Levaquin as well as give her a dose of vancomycin. CRP level will be ordered. Lactic acid level will be ordered. Both will be trended to deescalate antibiotics as well as her clinical and microbiologic data. I have started her on double-dose PPI therapy. GI evaluation will be placed. Her neurological status is the most bothersome. I have discussed with her and explained to him that there is a chance she has suffered a catastrophic neurologic event. Neurology consultation has been placed. She has been too unstable to go for a CT scan of her brain, but hopefully if that improves, we can get that. A 2D echo reportedly reports an ejection fraction of about 20-25%. Cardiology evaluation is ongoing for an ACS syndrome. No ST elevations were noted. Flu and pneumonia vaccination will be per protocol and she will be placed on DVT prophylaxis. Thank you very much for the consult. We will follow along and make further recommendations as the picture progresses/becomes clearer. She is critically ill, on life-sustaining interventions including mechanical ventilatory support at high risk for further deterioration including . JOB# [id number] LILY/ADITHYA
[2017-08-21] MEDS ORDERED: CORDARONE IV ONE (14:48)
--- NOTE | 2017-08-23 10:44 | Death Summary ---
Summary - Providers Date of service: 08/20/17 Consults: 08/19/17 10:04 Consult to Physician [CONS] Routine Consulting Provider: AUGUSTO ALBERTO Reason For Exam: Cardiac Arrest with ROSC, Dysrythmia Place consult to:: Saskia Joshi Notified:: yes Phone number called:: text message Was contact made?: Yes If yes, spoke with:: Dr Alberto Time called:: 09:02 08/19/17 10:59 Consult to Dietitian/Nutrition [CONS] Routine Physician Instructions: Reason For Exam: Reason for Consult: Evaluate nutritional intake 08/19/17 11:59 Consult to Physician [CONS] Routine Consulting Provider: RENALDO HENDRIX Reason For Exam: ESRD, Hyperkalemia Place consult to:: Ally Cortes NP Notified:: yes Phone number called:: [phone] Was contact made?: Yes If yes, spoke with:: Ally Time called:: 11:35 08/19/17 23:39 Consult to Physician [CONS] Routine Consulting Provider: MOON JEAN Reason For Exam: ICU admit Place consult to:: Dr. Vzaquez Notified:: Yes Phone number called:: [phone] Was contact made?: Yes If yes, spoke with:: Dr. Vazquez Time called:: 23:05 08/20/17 02:11 Consult to Dietitian/Nutrition [CONS] Routine Physician Instructions: Assess nutrtn needs, initiate, modify, manage TF Reason For Exam: Reason for Consult: Write/Manage Tube Feeding Reason for Consult: Write/Manage Tube Feeding 08/20/17 12:11 Consult to Physician [CONS] Routine Consulting Provider: YE KEATING Reason For Exam: encephalopathy Place consult to:: Dr Keating via [employer] Notified:: [id number] Attending: JONH OSPINA - summary Date of admission: 08/19/17 11:58 Date of : 08/20/17 Disposition: Unfortunate 42 year old female who has a history of hypertension, recently diagnosed with renal failure and also told about 3 months ago that she had a cardiomyopathy. The patient suffered a cardiac arrest at home on 08/19/17. EMS found her in v-fib. She received ACLS protocol, had spells of asystole, was intubated in the esophagus, presented to ER. In the ER the patient suffered several more arrests, but with ACLS protocol was brought back into rhythm. Since arrival to the hospital on her admission, she remained unresponsive, on the ventilator and required multiple pressors. The patient was noted to have a dilated cardiomyopathy, uremia, hyperkalemia, metabolic acidosis, anemia, encephalopathy, essentially MSOF and overall extremely poor prognosis. The patient was seen by pulmonary, cardiology, nephrology and neurology consultation. Unfortunately, patient continued to deteriorate despite efforts and had multiple cardiopulmonary arrests. Please see code notes for details. Patient was later pronounced at 2308 on 08/20/17
== END 2017-08-20 23:52 | DRG 208 ==
LOC: ED 08:09 → CC1 11:58
PROVIDERS: ADMIT Internal Medicine; ATTEND Hospitalist
PROC: 5A1945Z Respiratory Ventilation, 24-96 Consecutive Hours (ICD-10-PCS; principal; 2017-08-19)
PROC: 0BH17EZ Insertion of Endotracheal Airway into Trachea, Via Natural or Artificial Opening (ICD-10-PCS; 2017-08-19)
PROC: 5A1D70Z Performance of Urinary Filtration, Intermittent, Less than 6 Hours Per Day (ICD-10-PCS; 2017-08-19)
PROC: 30233N1 Transfusion of Nonautologous Red Blood Cells into Peripheral Vein, Percutaneous Approach (ICD-10-PCS; 2017-08-19)
PROC: 06HM33Z Insertion of Infusion Device into Right Femoral Vein, Percutaneous Approach (ICD-10-PCS; 2017-08-19)
PROC: B54BZZA Ultrasonography of Right Lower Extremity Veins, Guidance (ICD-10-PCS; 2017-08-19)
PROC: 4A033R1 Measurement of Arterial Saturation, Peripheral, Percutaneous Approach (ICD-10-PCS; 2017-08-20)
PROC: 5A1D70Z Performance of Urinary Filtration, Intermittent, Less than 6 Hours Per Day (ICD-10-PCS; 2017-08-20)
PROC: 3E0234Z Introduction of Serum, Toxoid and Vaccine into Muscle, Percutaneous Approach (ICD-10-PCS; 2017-08-20)
DX: J96.01 Acute respiratory failure with hypoxia (principal); N18.6 End stage renal disease; E87.2 Acidosis; J81.1 Chronic pulmonary edema; I42.0 Dilated cardiomyopathy; I13.2 Hypertensive heart and chronic kidney disease with heart failure and with stage 5 chronic kidney disease, or end stage renal disease; I49.01 Ventricular fibrillation; I46.9 Cardiac arrest, cause unspecified; E87.5 Hyperkalemia; I95.9 Hypotension, unspecified; Z23 Encounter for immunization; I50.9 Heart failure, unspecified; D63.8 Anemia in other chronic diseases classified elsewhere; Z99.2 Dependence on renal dialysis; W18.39XA Other fall on same level, initial encounter; Y93.89 Activity, other specified; Y92.091 Bathroom in other non-institutional residence as the place of occurrence of the external cause; Y99.8 Other external cause status
CPT/HCPCS: 36415; 36600; 71045; 80048; 80061; 80074; 82140; 82728; 82803; 82962; 83550; 83735; 83880; 84100; 84484; 85007; 85025; 86140; 86850; 86900; 86901; 86920; 87040; 87070; 87205; 90686; 90732; 92950; 93005; 93010; 93306; 94002; 94003; 94640; 96365; 96367; 96375; C9113; J0171; J0282; J0461; J0610; J0885; J1644; J1815; J1956; J3370; J7030; J7040; J7050; J7060; J7070; P9016; P9047